=== PATIENT | female | born 1985 | race Caucasian/White ===

== ENCOUNTER 2017-11-19 05:20 | Inpatient (IN) | payer MEDICAID ==
[2017-11-19] MEDS ORDERED: OXYTOCIN 30 UNITS/LR 500 ML IV (06:00)
[2017-11-19] MEDS ORDERED: MISOPROSTOL 200 MCG TAB PR ×2 (06:00→08:00)
[2017-11-19] MEDS ORDERED: CARBOPROST 250 MCG INJ IM (06:00)
[2017-11-19] MEDS ORDERED: METHYLERGONOVINE 0.2 MG INJ IM (06:00)
[2017-11-19 06:16] LABS: ADD MAN DIFF? NO
[2017-11-19 06:23] LABS: BASOPHIL # 0.1 10^3/ul (0.0-0.1); BASOPHILS % 0.8 % (0.0-2.0); EOSINOPHILS # 0.2 10^3/ul (0.0-0.5); EOSINOPHILS % 2.1 % (0.0-7.0); HEMATOCRIT 37.1 % (37.0-47.0); HEMOGLOBIN 12.3 g/dl (12.0-16.0); LYMPHOCYTES % 25.2 % (15.0-51.0); MEAN CORPUSCULAR HEMOGLOBIN 26.7 pg (29.0-33.0); MEAN CORPUSCULAR HGB CONC 33.2 g/dl (32.0-37.0); MEAN CORPUSCULAR VOLUME 80.7 fl (82.0-101.0); MEAN PLATELET VOLUME 12.5 fl (7.4-10.4); MONOCYTE # 0.7 10^3/ul (0.3-0.9); MONOCYTES % 8.3 % (0.0-11.0); NEUTROPHILS % 63.2 % (39.0-77.0); PLATELET COUNT 209 10^3/UL (140-415); RED CELL DISTRIBUTION WIDTH 14.7 % (11.5-14.5)
[2017-11-19 06:23] LABS: WHITE BLOOD COUNT 7.9 10^3/ul (4.8-10.8)
[2017-11-19] MEDS: LACTATED RINGER'S 1,000 ML IV ×7 (06:30→23:46)
[2017-11-19 06:40] LABS: INR 0.92; PROTIME 12.4 Sec (11.9-14.9)
[2017-11-19 07:11] LABS: HEPATITIS B SURFACE ANTIGEN NEGATIVE (NEGATIVE)
[2017-11-19] MEDS: CEFAZOLIN 2 GM/50 ML (PMX) 50 ML IV (07:37)
[2017-11-19] MEDS ORDERED: BUPIVACAINE 0.75%/DEXT (SPINAL) 2 ML INJ (07:38)
[2017-11-19] MEDS ORDERED: morphine SULFATE/PF (10 MG/10 ML) INJ (07:38)
[2017-11-19] MEDS ORDERED: FENTAnyl 50 MCG/ML VIAL (07:39)
[2017-11-19] MEDS ORDERED: PHENYLephrine (100 MCG/ML) 5ML SYG (07:46)
[2017-11-19] MEDS ORDERED: DEXAMETHASONE 4 MG/ML 1 ML INJ (07:46)
[2017-11-19] MEDS ORDERED: ONDANSETRON 4 MG INJ (07:56)
[2017-11-19] MEDS ORDERED: NA PHOSPHATE/BIPHOS 133 ML ENEMA PR (08:00)
[2017-11-19] MEDS ORDERED: NALOXONE (0.4 MG/ML) INJ IV (09:00)
[2017-11-19] MEDS ORDERED: ZOLPIDEM 5 MG TAB PO (09:00)
[2017-11-19] MEDS ORDERED: DIPHENHYDRAMINE 50 MG INJ IV (09:00)
[2017-11-19] MEDS ORDERED: HYDROmorphONE 0.5 MG/0.5 ML SYG IV ×2 (09:00)
[2017-11-19] MEDS ORDERED: ONDANSETRON 4 MG INJ IV (09:00)
[2017-11-19] MEDS: OXYTOCIN 30 UNITS/LR 500 ML IV (09:05)
[2017-11-19] MEDS: LACTATED RINGER'S 500 ML IV ×2 (09:22→09:37)
[2017-11-19] MEDS: EPHEDrine SULFATE 50 MG/5 ML SYG IV (09:22)
[2017-11-19] MEDS: IBUPROFEN 600 MG TAB PO ×2 (13:00→17:43)
[2017-11-19] MEDS: SENNA/DOCUSATE NA (8.6MG/50MG) TAB PO ×2 (13:00→21:26)
[2017-11-19 15:24] LABS: RAPID PLASMA REAGIN NONREACTIVE (NR)
[2017-11-19] MEDS: KETOROLAC 30 MG INJ IV (16:17)
[2017-11-20] MEDS: KETOROLAC 30 MG INJ IV ×2 (01:06→08:09)
[2017-11-20] MEDS: LACTATED RINGER'S 1,000 ML IV ×4 (05:40→21:39)
[2017-11-20] MEDS: IBUPROFEN 600 MG TAB PO ×5 (05:53→23:39)
[2017-11-20] MEDS: SENNA/DOCUSATE NA (8.6MG/50MG) TAB PO ×2 (08:09→21:38)
[2017-11-20 10:39] LABS: ADD MAN DIFF? NO
[2017-11-20 10:46] LABS: BASOPHILS % 0.4 % (0.0-2.0); EOSINOPHILS # 0.1 10^3/ul (0.0-0.5); EOSINOPHILS % 0.9 % (0.0-7.0); HEMOGLOBIN 10.6 g/dl (12.0-16.0); LYMPHOCYTES # 1.5 10^3/ul (0.8-2.9); MEAN CORPUSCULAR HEMOGLOBIN 27.4 pg (29.0-33.0); MEAN CORPUSCULAR HGB CONC 33.1 g/dl (32.0-37.0); MEAN CORPUSCULAR VOLUME 82.7 fl (82.0-101.0); MEAN PLATELET VOLUME 12.7 fl (7.4-10.4); MONOCYTE # 0.7 10^3/ul (0.3-0.9); MONOCYTES % 8.7 % (0.0-11.0); NEUTROPHIL # 5.9 10^3/ul (1.6-7.5); NEUTROPHILS % 71.5 % (39.0-77.0); PLATELET COUNT 208 10^3/UL (140-415); RED BLOOD COUNT 3.87 10^6/ul (4.20-5.40)
[2017-11-20 10:46] LABS: WHITE BLOOD COUNT 8.2 10^3/ul (4.8-10.8)
[2017-11-20] MEDS: OXYCODONE/ACETAMINOPHEN (5/325) TAB PO ×2 (13:38→18:06)
[2017-11-20] MEDS: LANOLIN 7 GM TUBE TOP (18:06)
[2017-11-21] MEDS: OXYCODONE/ACETAMINOPHEN (5/325) TAB PO ×3 (04:47→16:53)
[2017-11-21] MEDS: IBUPROFEN 600 MG TAB PO ×4 (06:00→23:32)
[2017-11-21] MEDS: SENNA/DOCUSATE NA (8.6MG/50MG) TAB PO ×2 (10:02→20:53)
[2017-11-22] MEDS: IBUPROFEN 600 MG TAB PO ×2 (05:40→11:32)
[2017-11-22] MEDS: SENNA/DOCUSATE NA (8.6MG/50MG) TAB PO (09:00)
[2017-11-22] MEDS: MEASLES,MUMPS,RUBELLA VACCINE INJ SC* (09:04)
[2017-11-22] MEDS: DIPHTH/TET/ACEL PERTUSS (ADULT) 0.5 ML VIAL IM* (09:04)
[2017-11-22] MEDS: OXYCODONE/ACETAMINOPHEN (5/325) TAB PO (10:18)
== END 2017-11-22 13:30 | disposition home or self-care (01) | DRG 766 ==
LOC: L-D 05:20 → PP1 12:47
PROVIDERS: Specialist
PROC: 10D00Z1 Extraction of Products of Conception, Low, Open Approach (ICD-10-PCS; principal; 2017-11-19 07:30)
DX: O34.219 Maternal care for unspecified type scar from previous cesarean delivery (principal); Z37.0 Single live birth; Z3A.39 39 weeks gestation of pregnancy
CPT/HCPCS: 85025; 85610; 85730; 86592; 86850; 86900; 86901; 87340; 94760; 99464

== ENCOUNTER 2018-06-02 22:59 | Emergency (ER) | payer MEDICAID ==
[2018-06-03 00:37] LABS: ADD MAN DIFF? NO; BASOPHIL # 0.1 10^3/ul (0.0-0.1); BASOPHILS % 0.6 % (0.0-2.0); EOSINOPHILS # 0.2 10^3/ul (0.0-0.5); EOSINOPHILS % 1.7 % (0.0-7.0); HEMATOCRIT 41.6 % (37.0-47.0); HEMOGLOBIN 13.8 g/dl (12.0-16.0); LYMPHOCYTES # 1.7 10^3/ul (0.8-2.9); LYMPHOCYTES % 18.6 % (15.0-51.0); MEAN CORPUSCULAR HEMOGLOBIN 27.1 pg (29.0-33.0); MEAN CORPUSCULAR HGB CONC 33.2 g/dl (32.0-37.0); MEAN CORPUSCULAR VOLUME 81.7 fl (82.0-101.0); MEAN PLATELET VOLUME 12.6 fl (7.4-10.4); MONOCYTE # 0.7 10^3/ul (0.3-0.9); MONOCYTES % 7.9 % (0.0-11.0); NEUTROPHIL # 6.4 10^3/ul (1.6-7.5); PLATELET COUNT 239 10^3/UL (140-415); RED BLOOD COUNT 5.09 10^6/ul (4.20-5.40); RED CELL DISTRIBUTION WIDTH 13.5 % (11.5-14.5)
[2018-06-03] MEDS: ONDANSETRON 4 MG INJ IV (00:40)
[2018-06-03] MEDS: KETOROLAC 30 MG INJ IV (00:43)
[2018-06-03 00:56] LABS: ALANINE AMINOTRANSFERASE 866 IU/L (13-69); ALBUMIN 4.9 g/dl (3.3-4.9); ALKALINE PHOSPHATASE 195 IU/L (42-121); ANION GAP 11 (5-13); ASPARTATE AMINO TRANSFERASE 268 IU/L (15-46); BILIRUBIN,INDIRECT 0.4 mg/dl (0-1.1); BILIRUBIN,TOTAL 0.4 mg/dl (0.2-1.3); BLOOD UREA NITROGEN 8 mg/dl (7-20); CALCIUM 9.8 mg/dl (8.4-10.2); CARBON DIOXIDE 28 mmol/L (21-31); CHLORIDE 102 mmol/L (97-110); CREATININE 0.55 mg/dl (0.44-1.00); Estimated GFR > 60 mL/min (>60); GLUCOSE 128 mg/dl (70-220); LIPASE 95 U/L (23-300); POTASSIUM 4.1 mmol/L (3.5-5.1); SODIUM 141 mmol/L (135-144); TOTAL PROTEIN 8.4 g/dl (6.1-8.1)
[2018-06-03 00:58] LABS: ADD UMIC YES; UR ASCORBIC ACID NEGATIVE (NEGATIVE); UR BACTERIA FEW /HPF (NONE SEEN); UR BILIRUBIN (Dip) NEGATIVE (NEGATIVE); UR BLOOD (Dip) NEGATIVE (NEGATIVE); UR CLARITY SLIGHTLY CLOUDY (CLEAR); UR COLOR YELLOW (YELLOW); UR GLUCOSE (Dip) NEGATIVE (NEGATIVE); UR KETONES (Dip) NEGATIVE (NEGATIVE); UR LEUKOCYTE ESTERASE (Dip) 3+ Leu/ul (NEGATIVE); UR NITRITE (Dip) NEGATIVE (NEGATIVE); UR NONSQUAMOUS EPITHELIAL CELL 2 /HPF (NONE SEEN); UR RBC 2 /HPF (0-5); UR SPECIFIC GRAVITY (Dip) 1.014 (1.003-1.030); UR SQUAMOUS EPITHELIAL CELL FEW /HPF (FEW); UR TOTAL PROTEIN (Dip) NEGATIVE (NEGATIVE); UR UROBILINOGEN (Dip) NEGATIVE (NEGATIVE); UR WBC 89 /HPF (0-5)
== END 2018-06-03 02:44 | disposition home or self-care (01) ==
LOC: FTE 06-03 02:44
DX: K80.80 Other cholelithiasis without obstruction (principal); N39.0 Urinary tract infection, site not specified
CPT/HCPCS: 36415; 74176; 76705; 80053; 81001; 81025; 83690; 85025; 96374; 96375; 99285-25